=== PATIENT | female | born 1985 | race Caucasian/White ===

== ENCOUNTER 2017-12-14 11:58 | Emergency (ER) | payer MEDICAID, OTHER ==
[2017-12-14 12:32] VITALS: BP 122/81
[2017-12-14] MEDS ORDERED: KETOROLAC TROMETHAMINE 60 MG/2 ML SDV IM ONE (13:09)
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
[2017-12-16 03:46] LABS: LYME DISEASE IGM AB <0.80 index (0.00-0.79)
== END 2017-12-14 13:44 | disposition home or self-care (01) ==
LOC: ER 11:58
DX: S70.362A Insect bite (nonvenomous), left thigh, initial encounter (principal); R21 Rash and other nonspecific skin eruption; F32.9 Major depressive disorder, single episode, unspecified; W57.XXXA Bitten or stung by nonvenomous insect and other nonvenomous arthropods, initial encounter; F17.200 Nicotine dependence, unspecified, uncomplicated
CPT/HCPCS: 36415; 86617; 86618; 99282

== ENCOUNTER 2018-04-25 10:10 | Emergency (ER) | payer OTHER ==
[2018-04-25] MEDS ORDERED: LIDOCAINE 1% INJ-PF (10 MG/ML) 30 ML SDV INJ ONE (11:13)
--- NOTE | 2018-04-25 11:13 | ER Document Report ---
ED General - General Chief Complaint: Headache Stated Complaint: BACTERIAL MENINGITIS EXPOSURE Time Seen by Provider: 04/25/18 10:42 Primary Care Provider: AMY WALLS MD [Primary Care Provider] - Follow up as needed Notes: Patient is a 32-year-old female that presents to the emergency department for chief complaint of headache and neck pain and possible bacterial meningitis exposure. Patient states that her [id number] was recently diagnosed with pneumococcal meningitis, and is currently admitted to the ICU, the patient states that yesterday she started having a holocephalic headache that she descri bes as pressure, and a 4 out of 10 at this time, she states that she was exposed to her [id number] the prior days before she was diagnosed with this. And since she started having headache and some neck pain she wanted to come to the emergency department to be evaluated for possible meningitis. Her friend and neighbor was also exposed to this patient that had meningitis, and did have an LP done yesterday, and tested positive, and was treated so that concerned her. She also brought her children in today to be evaluated, although they have not had similar symptoms to her. She has received all vaccinations over the course of her life. She denies noting any fevers, chills, rashes, chest pain, shortness of breath, nausea, vomiting or difficulty breathing. Past Medical History: Migraine headaches, depression Past Surgical History: Tonsillectomy and adenoidectomy D&C Social History: Admits to smoking tobacco and vapes, occasional alcohol use, denies illicit drug use. Family History: Reviewed and noncontributory for presenting illness Allergies: Reviewed, see documented allergy list. REVIEW OF SYSTEMS: Other than noted above, the 12 point review of systems was reviewed with the p atient and were negative, all pertinent findings are included in the HPI. PHYSICAL EXAMINATION: Vital signs reviewed, nursing noted reviewed. GENERAL: Well-appearing, well-nourished and in no acute distress. HEAD: Atraumatic, normocephalic. EYES: Eyes appear normal, extraocular movements intact, sclera anicteric, conjunctiva are normal. ENT: nares patent, oropharynx clear without exudates. Moist mucous membranes. NECK: Normal range of motion, supple without lymphadenopathy, No clear signs of meningismus, negative Kernig's and Brudzinski sign LUNGS: Breath sounds clear to auscultation bilaterally and equal. No wheezes rales or rhonchi. HEART: Regular rate and rhythm without murmurs ABDOMEN: Soft, nontender, normoactive bowel sounds. No rebound, guarding, or rigidity. No masses appreciated. EXTREMITIES: Nontender, good range of motion, no pitting or edema. NEUROLOGICAL: No focal neurological deficits. Moves all extremities spontaneously Motor and sensory grossly intact on exam. PSYCH: Normal mood, normal affect. SKIN: Warm, Dry, normal turgor, no rashes or lesions noted on exposed skin TRAVEL OUTSIDE OF THE [place] IN LAST 30 DAYS: No - Related Data Allergies/Adverse Reactions: bee venom protein (honey bee) Allergy (Verified 04/25/18 10:15) guava Allergy (Verified 04/25/18 10:15) Past Medical History - Social History Smoking Status: Current Every Day Smoker Family History: Reviewed & Not Pertinent Neurological Medical History: Reports: Hx Migraine Renal/ Medical History: Denies: Hx Peritoneal Dialysis Psychiatric Medical History: Reports: Hx Depression - and anxiety Past Surgical History: Reports: Hx Tonsillectomy - Immunizations Hx Diphtheria, Pertussis, Tetanus Vaccination: Yes Physical Exam - Vital signs Vitals: Temp Pulse Resp BP Pulse Ox 98.4 F 87 12 121/76 100 04/25/18 10:19 04/25/18 10:19 04/25/18 10:19 04/25/18 10:19 04/25/18 10:19 Course - Re-evaluation Re-evalutation: Patient seen and examined vital signs reviewed. Patient was evaluated and treated as appropriate for the patient's presenting symptoms and complaint, with consideration of any critical or life threatening conditions that may be associated with their obtained history and exam as noted above. Patient was treated with Tylenol for her headache, lumbar puncture performed as noted. The patient was re-evaluated and was stable, given prophylaxis with ciprofloxacin 500 mg p.o., CSF demonstrated 1 white blood cell in both tubes, 0 reds, normal glucose, otherwise unremarkable, Gram stain negative for organisms, at this point I feel that the patient is ruled out for meningitis, treated with chemoprophylaxis, advised precautions going forward and is dischargeable. Evaluation was most consistent with meningitis exposure Plan of care was discussed with the patient at this point, after careful consideration I feel that that patient can be discharged from the emergency department, the patient was educated treatments and reasons to return to the emergency department based on their presumed diagnosis as noted above, they were advised to followup with a primary care physician in 2-3 days. Patient was agreeable to plan of care. *Note is created using voice recognition software and may contain spelling, syntax or grammatical errors. Microbiology 04/25/18 12:11 Gram Stain - Preliminary Cerebral Spinal Fluid - [facility] Laboratory 04/25/18 04/25/18 04/25/18 12:11 12:11 12:11 Fluid Tube Number 1 4 CSF Volume 6.1 6.1 CSF Appearance CLEAR CLEAR CSF Color COLORLESS COLORLESS CSF WBC 1 1 CSF RBC 0 0 CSF Glucose 53 CSF Total Protein 37 - Vital Signs Vital signs: Temp Pulse Resp BP Pulse Ox 97.6 F 68 12 112/80 100 04/25/18 13:49 04/25/18 13:49 04/25/18 10:19 04/25/18 13:49 04/25/18 13:49 Procedures - Lumbar Puncture Lumbar puncture Consent obtained: Yes - Lumbar puncture pre-procedure: Sterile PPE donned, Betadine prep applied, Sterile drapes applied Patient position: Sitting Needle size: 22 Lumbar puncture location: L4-L5 Anesthetic type: 1% Lidocaine mL's of anesthetic: 2 Amount/type of drainage: 6 clear CSF Number of attempts: 1 Complications: No Notes: Risks and benefits of the procedure, were discussed with the patient including but not limited to infection, bleeding, post spinal headache, patient agreed to proceed, allergies are reviewed. Using the lumbar puncture, patient's L4-L5 space was identified, and augmented identification with ultrasound, curtis was made, patient was prepped and draped sterilely and maximal barrier precautions, anesthetized with 2 mL's of 1% lidocaine, and using spinal needle, was introduced into the dural space, a total of 6 mL's of clear CSF were obtained, and sent for culture, and cell counts. Pressure was held over the site after needle was removed, and Band-Aid applied, patient was placed in a supine flat position, patient tolerated procedure well, and no complications. Discharge - Discharge Clinical Impression: Meningitis exposure Condition: Stable Disposition: HOME, SELF-CARE Additional Instructions: You have been exposed to meningitis, at this time your cultures and blood counts from your cerebral spinal fluid are pending, I do have a low suspicion that you have meningitis, given that your symptoms are not that consistent with meningitis, and he overall looks well, and your gross appearance of your cerebral spinal fluid looked normal and clear. I do advise you to follow-up with her primary care physician, you have been given a dose of an antibiotic, that should prophylax against meningitis as well, and he should avoid further contact as much as possible with your [id number] to prevent further exposure. Referrals: AMY WALLS MD [Primary Care Provider] - Follow up as needed
[2018-04-25] MEDS ORDERED: ACETAMINOPHEN 325 MG TABLET PO ONE (12:21)
[2018-04-25] MEDS ORDERED: CIPROFLOXACIN HCL 500 MG TABLET PO ONE (13:42)
[2018-04-25 13:46] LABS: APPEARANCE ALL TUBES CLEAR; COLOR ALL TUBES COLORLESS; CSF TOTAL VOLUME 6.1 CC; CSF TUBE NUMBER 1; VOLUME TUBE 1 1.5 CC; VOLUME TUBE 2 1.5 CC; VOLUME TUBE 3 1.8 CC; VOLUME TUBE 4 1.3 CC
[2018-04-25 13:47] LABS: RED BLOOD CELL,CSF 0 /uL (0-10); WHITE BLOOD CELL,CSF 1 /uL (0-5)
[2018-04-25 13:48] LABS: APPEARANCE ALL TUBES CLEAR; COLOR ALL TUBES COLORLESS; CSF TOTAL VOLUME 6.1 CC; CSF TUBE NUMBER 4; RED BLOOD CELL,CSF 0 /uL (0-10); VOLUME TUBE 1 1.5 CC; VOLUME TUBE 2 1.5 CC; VOLUME TUBE 3 1.8 CC; VOLUME TUBE 4 1.3 CC; WHITE BLOOD CELL,CSF 1 /uL (0-5)
[2018-04-25 13:49] LABS: GLUCOSE,CSF 53 mg/dL (40-70); PROTEIN,CSF 37 mg/dL (12-60)
[2018-04-25 13:53] VITALS: BP 112/80
== END 2018-04-25 13:53 | disposition home or self-care (01) ==
LOC: ER 10:10
PROC: 00JU3ZZ Inspection of Spinal Canal, Percutaneous Approach (ICD-10-PCS; principal; 2018-04-25)
DX: Z20.811 Contact with and (suspected) exposure to meningococcus (principal); R51 Headache; M54.2 Cervicalgia; F17.200 Nicotine dependence, unspecified, uncomplicated
CPT/HCPCS: 99284; 87070; 87205; 89050; 82945; 84157; 62270; J3490